=== PATIENT | female | born 1990 | race Caucasian/White ===

== ENCOUNTER 2023-07-23 11:49 | Outpatient (CLI) | payer OTHER, SELFPAY ==
--- NOTE | ~2023-07-23 | US_ITS ---
US breast RT limited 07/23/2023 12:07 Indication: Palpable lump right breast. Patient squeezed lump with resultant white discharge. Procedure: High-resolution Limited ultrasound of the right breast Comparison: No prior studies for comparison. Findings: In the area of palpable concern at 9:00 near the areola there is an oval circumscribed para llel oriented hypoechoic 7 mm mass without significant posterior features or internal vascularity, li aquilino benign. No other discrete mass. Impression: 1: Probable benign right breast mass at 9:00 near the areola measuring 7 mm. BI-RADS CATEGORY 3-PROBABLY BENIGN FINDING RECOMMENDATION: 6 month follow-up Limited right breast ultrasound recommended. Reviewed, dictated and finalized at location A. [employer] Impression: 1: Probable benign right breast mass at 9:00 near the areola measuring 7 mm. BI-RADS CATEGORY 3-PROBABLY BENIGN FINDING RECOMMENDATION: 6 month follow-up Limited right breast ultrasound recommended.
== END 2023-07-23 11:50 ==
PROVIDERS: PCP Nurse Practitioner; Visit Provider Nurse Practitioner
DX: N63.10 Unspecified lump in the right breast, unspecified quadrant (principal); R92.8 Other abnormal and inconclusive findings on diagnostic imaging of breast
CPT/HCPCS: 76642